=== PATIENT | male | born 1980 | race Caucasian/White ===

== ENCOUNTER 2019-07-27 09:02 | Emergency (ER) | payer MEDICAID, SELFPAY ==
[2019-07-27 09:11] VITALS: BP 138/82; PULSE 105; RESP 16; TEMP 36.6; O2SAT 100
[2019-07-27 09:54] LABS: Abs Immature Grans 0.01 k/cumm (0.0-0.09); Absolute Basophil Count 0.02 k/cumm (0.0-0.2); Absolute Eosinophil Count 0.07 k/cumm (0.0-0.7); Absolute Lymphocyte Count 1.83 k/cumm (1.2-3.4); Absolute Monocyte Count 0.51 k/cumm (0.11-0.7); Absolute Neutrophil Count 7.02 k/cumm (1.2-6.7); Basophils % 0.2; Eosinophils % 0.7; HCT 48.1 % (40.0-50.0); HGB 16.1 g/dL (13.5-17.5); Immature Grans % 0.1; Lymphocytes % 19.3; Mean Corp. HGB Concentration 33.5 g/dL (32.0-36.0); Mean Corpuscular Hemoglobin 31.8 pg (27.0-33.0); Mean Corpuscular Volume 94.9 fL (80-95); Mean Platelet Volume 9.5 fL (8.0-11.0); Monocytes % 5.4; Neutrophils % 74.3; Platelet Count 261 x1000/uL (130-400); RBC 5.07 m/cumm (4.50-6.00); RBC Distribution Width 13.3 % (11.8-14.1); White Blood Cell Count 9.46 k/cumm (4.4-10.8)
[2019-07-27 10:05] LABS: Magnesium 1.9 mg/dL (1.8-2.4)
[2019-07-27 10:09] LABS: ALT 24 U/L (16-63); AST 17 U/L (15-37); Albumin 4.1 g/dL (3.4-5.0); Alkaline Phosphatase 73 U/L (46-116); Anion Gap 8.1 mmol/L (3-11); BUN 15 mg/dL (7-18); Bilirubin, Total 0.9 mg/dL (0.2-1.0); CO2 27.9 mmol/L (21.0-32.0); CREATININE 1.12 mg/dL (0.70-1.30); Calcium 9.8 mg/dL (8.5-10.1); Chloride 104 mmol/L (98-107); Glucose 121 mg/dL (70-100); Potassium 3.9 mmol/L (3.5-5.1); Sodium 140 mmol/L (136-145); Total Protein 8.1 g/dL (6.4-8.2)
[2019-07-27 10:13] LABS: *AMPHETAMINES SCREEN URINE Negative (Negative); *BARBITURATES SCREEN URINE Negative (Negative); *BENZODIAZEPINES SCREEN URINE Negative (Negative); Cannabinoids THC POSITIVE (Negative); Cocaine Screen,Urine Negative (Negative); METHADONE URINE SCREEN Negative (Negative); OPIATES URINE SCREEN Negative (Negative)
[2019-07-27 10:14] LABS: Tricyclic Antidepressants Negative (Negative)
[2019-07-27 10:16] LABS: ETHANOL BLOOD < 3.0 mg/dL (<3)
--- NOTE | 2019-07-27 10:46 | ED.GENADUL_ITS ---
Discharge Plan Disposition Patient Disposition: HOME Condition: Stable Discharge Details Chief Complaint: PsychEval Clinical Impression: Depression Primary Care Provider: Roland Phelps ED Provider: Tamera Chaudhary Home Meds and New Rx's Prescriptions: No Action No Known Home Meds RF: 0 Discharge Instructions Instructions: Depression (ED) Additional Instructions: Follow-up with [facility] at 4:20 PM as scheduled. Follow-up with an outpatient counselor. [facility] will help provide a referral for this. Check-in with [facility] daily for the next few days to be sure you are doing well. Try to eat a well-balanced diet. Try to avoid all drugs and alcohol. Return for any worsening or concerns sooner if needed Medical Decision Making Spoke with [facility] after they evaluated the patient. They have made him an appointment with [facility] at 4:20 PM to arrange for any depression medication evaluation and management. They have also sent a referral for a local counselor. They will check in with the patient daily for the next few days to be sure he is doing well. Patient agrees with the safety plan of care. I do think this is an appropriate plan of care. Patient agrees with plan of care. Will discharge home at this time. HPI General Date/Time Provider Initiated Documentation: 07/27/19 09:04 . HPI Narrative: Patient presents for psych evaluation. Patient reports struggling with depression for the last 2 years worsening in the last few weeks. Patient reports he had some psychologic stressors specifically a divorce followed by a bad relationship and loss of his stepmother all within 6 months. Patient reports this occurred approximately 2 years ago and he is been struggling with depression since. Patient does report a history of untreated anxiety and panic attack. Patient reports in the last several years he has learned coping skills in which he can manage his anxiety however he is continuing to struggle with worsening depression. Patient reports no significant medical concerns or complaints at this time. Patient does admit to alcohol approximately 4-6 beers when drinking multiple days a week but not all days. Patient denies opiates. Admits to marijuana occasionally. Patient reports struggling with daily activities. He is no longer working. Decreased food intake. Some difficulty sleeping. No other concerns or complaints at this time. Patient denies specific suicidality or homicidality. Patient does report he thinks more about walking into the [place] with no supplies and letting what ever happens happen Related Data Home Medications Medication Instructions Recorded Confirmed Unknown [No Known Home Meds] 07/27/19 07/27/19 Allergies Allergy/AdvReac Type Severity Reaction Status Date / Time No Known Allergies Allergy Unverified 07/27/19 09:15 General Stated Complaint: PsychEval TYLER: 2 Review of Systems Review of Systems Narrative: CONSTITUTIONAL: The patient denies fevers, chills. EYES: Denies vision changes, blurry vision, or eye pain. ENT: Denies hearing changes, tinnitus, vertigo, sore throat. CARDIAC: Denies chest pain, SOB. RESPIRATORY: Denies cough, sputum. Denies difficulty breathing. GASTROINTESTINAL: Denies abdominal pain, changes in bowel, vomiting or nausea. GENITOURINARY: Denies dysuria, or frequency of urination. MUSCULOSKELETAL: Denies Joint pain, gait changes. NEUROLOGIC: Denies headaches, Denies focal weakness. Denies numbness. INTEGUMENT: Denies rashes. PSYCHIATRIC: Denies behavior changes. Denies anxiety or depression. ENDOCRINOLOGY: Denies fatigue. PSYCHIATRY: depression, and anxiety. Denies pyschosis [facility] Medical History Ryann-Rupert syndrome GERD (gastroesophageal reflux disease) Surgical History Endoscopy (06/14/16) Family History Mother No problems noted. Father No problems noted. Sister No problems noted. Brother No problems noted. Grandfather No problems noted. Grandfather No problems noted. Grandmother COPD (chronic obstructive pulmonary disease) Grandmother Personal history of malignant neoplasm STOMACH Social History Smoking/Tobacco Use Status: Former Tobacco Use Drug use: Socially Substance use type: marijuana Do you feel safe in your relationship?: Yes Exam Narrative Exam Narrative: CONST: Healthy appearing patient, in no acute distress. Well hydrated. Alert and alert. Pale HENMT: Head nomocephalic, normal to inspection. Atraumatic. Hearing grossly normal. EYES: General normal appearance. Alignment normal. Eyelids normal. Conjunctiva normal. NECK: Normal visual inspection. FROM. Trachea midline. No Midline tenderness. CHEST: Normal insepection of the chest. RESP: Normal respiratory effort. Speaking full sentences. No cough. No audible wheezing. No retractions. CARDIO: No JVD. MUSCULOSKELETAL: Normal Gait. FROM of all extremities. SKIN: Normal. Dry. No rashes. NEURO: Alert and awake. Speech clear. PSYCH: Normal affect. Cooperative. Course Vital Signs Vital signs: Vital Signs Temperature 36.6 C 07/27/19 09:11 Pulse 105 H 07/27/19 09:11 Respiratory Rate 16 07/27/19 09:11 Blood Pressure 138/82 07/27/19 09:11 Pulse Oximetry 100 07/27/19 09:11 Temperature 36.6 C 07/27/19 09:11 Temperature Source Skin 07/27/19 09:11 Pulse 105 H 07/27/19 09:11 Respiratory Rate 16 07/27/19 09:11 Respiratory Effort Non-Labored 07/27/19 09:13 Blood Pressure 138/82 07/27/19 09:11 Pulse Oximetry 100 07/27/19 09:11 Oxygen Delivery Method Room Air 07/27/19 09:11 Oxygen Flow Rate 0 07/27/19 09:11 Lab/Test Results Lab/Test Results: Laboratory Tests Range/Units 07/27/19 07/27/19 07/27/19 09:39 09:45 09:45 WBC (4.4-10.8) k/cumm RBC (4.50-6.00) m/cumm Hgb (13.5-17.5) g/dL Hct (40.0-50.0) % MCV (80-95) fL MCH (27.0-33.0) pg MCHC (32.0-36.0) g/dL RDW (11.8-14.1) % Plt Count (130-400) x1000/uL MPV (8.0-11.0) fL Immature Gran % Neutrophils % Lymphocytes % Monocytes % Eosinophils % Basophils % Absolute Neutrophils (1.2-6.7) k/cumm Absolute Lymphocytes (1.2-3.4) k/cumm Absolute Monocytes (0.11-0.7) k/cumm Absolute Eosinophils (0.0-0.7) k/cumm Absolute Basophils (0.0-0.2) k/cumm Sodium (136-145) mmol/L 140 Potassium (3.5-5.1) mmol/L 3.9 Chloride (98-107) mmol/L 104 Carbon Dioxide (21.0-32.0) mmol/L 27.9 Anion Gap (3-11) mmol/L 8.1 BUN (7-18) mg/dL 15 Creatinine (0.70-1.30) mg/dL 1.12 Estimated GFR/1.73 m2 (mL/min/1.73m2) >= 60.00 Glucose (70-100) mg/dL 121 H Calcium (8.5-10.1) mg/dL 9.8 Magnesium (1.8-2.4) mg/dL Total Bilirubin (0.2-1.0) mg/dL 0.9 AST (15-37) U/L 17 ALT (16-63) U/L 24 Alkaline Phosphatase (46-116) U/L 73 Total Protein (6.4-8.2) g/dL 8.1 Albumin (3.4-5.0) g/dL 4.1 Urine Opiates Screen (Negative) Negative Urine Methadone Screen (Negative) Negative Ur Barbiturates Screen (Negative) Negative Ur Tricyclics Screen (Negative) Negative Ur Amphetamines Screen (Negative) Negative U Benzodiazepines Scrn (Negative) Negative Urine Cocaine Screen (Negative) Negative Ur THC Screen (Negative) Positive Ethyl Alcohol (<3) mg/dL < 3.0 Range/Units 07/27/19 07/27/19 09:45 09:45 WBC (4.4-10.8) k/cumm 9.46 RBC (4.50-6.00) m/cumm 5.07 Hgb (13.5-17.5) g/dL 16.1 Hct (40.0-50.0) % 48.1 MCV (80-95) fL 94.9 MCH (27.0-33.0) pg 31.8 MCHC (32.0-36.0) g/dL 33.5 RDW (11.8-14.1) % 13.3 Plt Count (130-400) x1000/uL 261 MPV (8.0-11.0) fL 9.5 Immature Gran % 0.1 Neutrophils % 74.3 Lymphocytes % 19.3 Monocytes % 5.4 Eosinophils % 0.7 Basophils % 0.2 Absolute Neutrophils (1.2-6.7) k/cumm 7.02 H Absolute Lymphocytes (1.2-3.4) k/cumm 1.83 Absolute Monocytes (0.11-0.7) k/cumm 0.51 Absolute Eosinophils (0.0-0.7) k/cumm 0.07 Absolute Basophils (0.0-0.2) k/cumm 0.02 Sodium (136-145) mmol/L Potassium (3.5-5.1) mmol/L Chloride (98-107) mmol/L Carbon Dioxide (21.0-32.0) mmol/L Anion Gap (3-11) mmol/L BUN (7-18) mg/dL Creatinine (0.70-1.30) mg/dL Estimated GFR/1.73 m2 (mL/min/1.73m2) Glucose (70-100) mg/dL Calcium (8.5-10.1) mg/dL Magnesium (1.8-2.4) mg/dL 1.9 Total Bilirubin (0.2-1.0) mg/dL AST (15-37) U/L ALT (16-63) U/L Alkaline Phosphatase (46-116) U/L Total Protein (6.4-8.2) g/dL Albumin (3.4-5.0) g/dL Urine Opiates Screen (Negative) Urine Methadone Screen (Negative) Ur Barbiturates Screen (Negative) Ur Tricyclics Screen (Negative) Ur Amphetamines Screen (Negative) U Benzodiazepines Scrn (Negative) Urine Cocaine Screen (Negative) Ur THC Screen (Negative) Ethyl Alcohol (<3) mg/dL
== END 2019-07-27 11:15 | disposition home or self-care (01) ==
PROVIDERS: Emergency Provider Physician Assistant; PCP Family Medicine
DX: F41.8 Other specified anxiety disorders (principal); Z63.0 Problems in relationship with spouse or partner; Z63.4 Disappearance and death of family member
CPT/HCPCS: 80053; 80307; 99283; 80320; 83735; 85025